=== PATIENT | female | born 1985 ===

== ENCOUNTER 2024-08-24 07:48 | Emergency (ER) | payer OTHER ==
[~2024-08-24] VITALS: Ht 167.6 cm; Wt 117.5 kg
[2024-08-24] MEDS ORDERED: HyDROXyzine HCl 25 MG Tab PO ONE (09:20)
[2024-08-24] MEDS ORDERED: LORazepam 1 MG Tab PO ONE (09:20)
== END 2024-08-24 09:29 | disposition home or self-care (01) ==
LOC: ER 07:48
DX: F41.0 Panic disorder [episodic paroxysmal anxiety] (principal)
CPT/HCPCS: 99282; A9270